=== PATIENT | female | born 1985 | race Caucasian/White ===

== ENCOUNTER 2016-11-10 11:54 | Emergency (ER) | payer SELFPAY ==
[~2016-11-10] VITALS: Ht 162.6 cm; Wt 53.5 kg
--- NOTE | 2016-11-10 12:24 | NUR ---
ACCU CHECK IS 143, MD AWARE.
--- NOTE | 2016-11-10 12:25 | NUR ---
CALLED [facility] [employer] FOR SAFETY. SPOKE TO ELFEGO FRANKLIN( REP), SUGGESTED TO FEED PT AND RECHECK BLOOD GLUCOSE, AND OBSERVE FOR [address] TIDWELL AWARE AND SPOKE FOR PT AND FAMILY.
--- NOTE | 2016-11-10 12:42 | NUR ---
Patient discharged to home in stable conditon. Written and verbal after care instructions given. Patient verbalizes understanding of instructions. Patient left with steady gait.
[2016-11-10 12:43] VITALS: BP 113/71
== END 2016-11-10 12:44 | disposition home or self-care (01) ==
LOC: ER 11:54
DX: F41.9 Anxiety disorder, unspecified (principal); T50.995A Adverse effect of other drugs, medicaments and biological substances, initial encounter; Y92.89 Other specified places as the place of occurrence of the external cause
CPT/HCPCS: 82962; 99283; A4663